=== PATIENT | female | born 1940 | race Caucasian/White ===

== ENCOUNTER → 2017-06-02 | Day surgery (SDC) | payer MEDICARE, OTHER ==
[2017-06-02] VITALS (10 sets, daily range): BP systolic 123–159; BP diastolic 47–77; PULSE 53–89; RESP 12–17; O2SAT 93–100
[~2017-06-02] VITALS: Ht 149.9 cm; Wt 49.4 kg
[~2017-06-02] MED LIST: ACET-2605 PO; ACET500C49 PO; AMLO5TAB2 PO; ASPI-973 PO; CHOL200078 PO; CeFAZolin 2 Gm/50 mL D5W Duplex Bag IV ONE; CeFAZolin Inj 2 GM in IV Premix 1 EACH IV ONE; DICY10CA13 PO; Dexamethasone 4 mg/mL Inj IVPUSH PRN; EPHEDrine Sulfate 50 mg/mL Inj IVPUSH PRN; GABA-502 PO; HYDROcodone-APAP 5-325 mg Tablet PO PRN; KETO10TA PO; Ketamine 10 mg/mL 20 mL Inj ONE; LANS30CA PO; LISI10TA PO; Lactated Ringer's 1,000 ML IV ONE; Lactated Ringer's 1,000 ML IV SCH; Lactated Ringer's 500 ML IV PRN; MAGN200T PO; MELA1TAB28 PO; METO-386 PO; MULTIVITAMIN PO; MetoCLOpramide 5 mg/mL 2 mL Inj IVPUSH PRN; OXYC5CAP4 PO; Ondansetron 2 mg/mL 2 mL Inj IVPUSH PRN; Ondansetron 2 mg/mL 2 mL Inj ONE; Phenylephrine 10,000 mCg/mL Inj IVPUSH PRN; Propofol 10,000 mCg/mL 20 mL Inj ONE; QUET25TA73 PO; SUCR1TAB PO; [UNRECOGNIZED DRUG - CODE] IM; [UNRECOGNIZED DRUG - CODE] PO; [UNRECOGNIZED DRUG - OTHER] PO; morphine PO
--- NOTE | 2017-06-02 08:03 | PCM.HPANE ---
Patient Data Surgeon Admitting Provider: Attending Provider:Lulu Delgadillo MD Primary Care Physician:Stan Chatman MD Other Provider:[facility] Reason for Visit Lower Urinary Tract Symptoms Ht/WT & BMI Height (Feet): 4 Height (Inches): 11.00 Weight (Kilograms): 49.400 Body Mass Index 21.00 Allergies Coded Allergies: quinine (Verified Allergy, Severe, itching and swelling, 06/01/17) Past Anesthesia History Anesthesia History: Denies:: Abnormal Airway, Anesthesia Reactions, Difficult Intubation, Fam Anesthesia Reaction, Fam Malignant Hypertherm, Malignant Hyperthermia Diabetes History Hx Diabetes?: No MRSA MRSA: No Medications Blood Thinner: Aspirin Last Dose Blood Thinner: May 24, 2017 Hypertension Medication: Yes (Metoprolol, Lisinopril) Home Meds Incl Beta Segun: Yes Date Beta Segun Taken: Jun 02, 2017 Time Beta Segun Taken: 05:00 Reported Medications Acetaminophen 500 Mg [id number] Mg PO prn 06/02/17 Cholecalciferol (Vitamin D3) (Vitamin D3)2,000 Unit Tab.chew2,000 Unit PO DAILY 06/01/17 Sucralfate 1 Gm Tablet1 Gm PO HS 30 Days Ref 0 06/01/17 Quetiapine Fumarate 25 Mg Nshvqu65 Mg PO HS Ref 0 06/01/17 Paregoric 2 Mg/5 Ml Liquid2 Mg PO DAILY 06/01/17 oxyCODONE 5 Mg Capsule5 Mg PO Q4H PRN For Pain Ref 0 06/01/17 [multivitamin 50 plus] No Conflict Check Po Daily 06/01/17 [morphine] No Conflict Check15 Mg PO TID PRN For Pain 06/01/17 Metoprolol Succinate ER 25 Mg Tab.er.24h25 Mg PO DAILY Ref 0 06/01/17 Melatonin/Pyridoxine HCl (B6) (Melatonin 3 mg Tablet)1 Each Tablet1 Each PO HS 06/01/17 Magnesium 200 Mg [id number] Mg PO DAILY 06/01/17 Lisinopril 10 Mg Mzzbjc38 Mg PO DAILY 30 Days Ref 0 06/01/17 Lansoprazole 30 Mg Capsule.dr30 Mg PO DAILY #30 CAPSULE Ref 0 06/01/17 Ketorolac Tromethamine 10 Mg Dfrqnf41 Mg PO TID 30 Days 06/01/17 Gabapentin 300 Mg Jppiiri030 Mg PO HS Ref 0 06/01/17 Dicyclomine 10 Mg Bnmwcaf91 Mg PO TID PRN For GI Cramps Ref 0 06/01/17 Aspirin 81 Mg Xmehyl93 Mg PO DAILY Ref 0 06/01/17 Amlodipine 5 Mg Tablet5 Mg PO DAILY Ref 0 06/01/17 Discontinued Reported Medications Acetaminophen/Diphenhydramine (Tylenol Pm Ex-Strength Caplet)500 Mg-25 Mg Tablet1 Each PO DAILY 06/01/17 Dicyclomine HCl 10 Mg/Ml Vial10 Mg IM 06/01/17 History History of ENT Problems?: No HEENT History: Positive for:: Cataracts (removed) Denies:: Abnormal Airway Difficult Intubation Dysphagia Glaucoma Hearing Problem Sinus Problem TMJ Denture Type: None Teeth Condition: Within Normal Limits Hx of Heart Problems?: No Cardiovascular History: Positive for:: Hypertension Irregular Heartbeat Denies:: AICD Abdominal Aortic Aneurism Atrial Fibrillation Cardiac Surgery Chest Pain Congestive Heart Failure Coronary Artery Disease Edema Heart Murmur Pacemaker Peripheral Vascular Rheumatic Fever Thrombophlebitis Valvular Heart Disease Other Cardiac History: Hx of Respiratory Problem?: Yes Respiratory History: Positive for:: Pneumonia (1985) Denies:: Use of C-PAP Machine Use of Inhalers / NEBS Hx Neurologic Problems?: Yes Neurological History: Positive for:: Headaches (Daily neck pain) Denies:: Alzheimer's Disease CVA Dementia Dizziness Parkinson's Disease TIA Hx of GI Problems?: No Gastrointestinal History: Denies:: Cirrhosis Diverticulitis Gall Bladder Disease Gastroesphageal Reflux Gastrointestinal Bleeding Heartburn Hepatitis Hiatal Hernia Liver Disease Rectal Bleeding Other GI Pertinent History: Colitis Hx of Problems?: No Genitourinary History: Denies:: Urinary Tract Infection HX of Peritoneal Dialysis: No Female Hx: Positive for:: Problems with Breasts? (lumpectomy years ago) Denies:: Currently Skin History: Denies:: History Skin Disorders? Pressure Ulcers Hx Musculoskeletal Problems?: Yes Musculoskeletal History: Positive for:: Back Injury (Lower back at [facility]) Rheumatoid Arthritis Denies:: Degenerative Joint Joint Replacement Musculoskeletal Trauma Osteoarthritis Hx of Psycho/Social Problems?: No Hx Surgeries?: Yes (bladder) Other History: Positive for:: Hospitalization (2014) Denies:: Cancer Endocrine Disease Thyroid Disease History Blood Transfusions: Positive for:: Accept Blood Products? Denies:: Blood Transfusions Hx Diabetes: No Hx Alcohol Use: YesAlcoholic Drinks Per Day: Wine with dinnerHx Substance Use : No Stop/Bang Treated for Sleep Apnea?: No Do You Have a CPAP Machine?: No S-Snoring: Do You Snore Loudly: No T-Tired: feel tired, fatigued: No O-Obsered: Observed not breath: No P-Blood Pressure: treated: Yes B- Body Mass Index > 35 kg/m2: No A- Age over 50: Yes N- Neck Large Circumference: No G- Gender Male: No ORIANA Total Score: 2 ORIANA Risk Assessment: Low Risk, <3 Yes Risk Assessment Category Category 1A: Patient has history of documented sleep apnea, and HAS NOT received any narcotic, sedative or anesthesia administration during this stay. Category 1B: Patient has history of documented sleep apnea, and HAS received any narcotic , sedative or anesthesia administration during this stay Category 2: Patient has SUSPECTED Obstructive Sleep Apnea, and HAS received any narcotic , sedative or anesthesia administration during this stay. Category 3: Patient has SUSPECTED Obstructive Sleep Apnea and HAS NOT received narcotic, sedative or anesthesia administration during this stay. Category 4: Outpatient in Procedural Areas with known sleep apnea or who screen positive for High Risk via the STOP/BANG questionnaire. Exam Exam Vital Signs Vital Signs Date Time Temp Pulse Resp B/P Pulse Ox O2 Delivery O2 Flow Rate FiO2 06/02/17 07:13 36.4 89 15 144/77 96 Room Air General Appearance: Alert, Oriented X3, Cooperative, No Acute Distress HEENT/AIRWAY: MP 2 Lungs: Clear to Auscultation, Normal Air Movement Heart: Exam Unremarkable, Regular Rate/Rhythm, No Murmurs/Rubs/Gallops Meds/Labs/Diagnostics Admission Meds Current Medications Lactated Ringer's (Lr) 1,000 ml @ ud STK-MED ONCE IV Last administered on 06/02t 07:48; Start 06/02/17 at 07:48; Stop 06/02/17 at 07:49; Status DC Plan Impression Patient chart reviewed, patient interviewed and anesthestic plan with risks, benefits, and alternatives discussed, and informed consent obtained. ASA Physical Status: ASA2 Mod Systemic Disease Anesthetic Plan: GA Bene/Risks/Altern/Consents: Yes HP Complete Prior to Induction: Yes Luis Bansal MD Jun 02, 2017 08:03
[2017-06-02] MEDS: fentaNYL-PF 50 mCg/mL 2 mL Inj IVPUSH PRN ×2 (10:05→10:17)
[2017-06-02] MEDS: HYDROmorphone 1 mg/mL Inj IVPUSH PRN ×2 (10:08→10:15)
--- NOTE | 2017-06-02 10:10 | OP ---
[address] [address] OPERATIVE REPORT PATIENT: GIO GIRARD : 1940 MR#: [id number] ADMIT: 06/02/2017 JOB ID: [id number] DATE OF SURGERY: 06/02/2017 PREOPERATIVE DIAGNOSIS(ES): Bladder lesion. POSTOPERATIVE DIAGNOSIS(ES): Bladder lesion. PROCEDURE PERFORMED: Cystoscopy and fulguration of bladder lesion. SURGEON: Lulu Delgadillo M.D. TOURS CAPTAIN: None. FINDINGS: Posterior bladder wall shallow appearing ulceration. ANESTHESIA: General. ESTIMATED BLOOD LOSS: None. DRAINS: None. SPECIMENS: None. COMPLICATIONS: None. CONDITION: Stable. INDICATIONS FOR PROCEDURE: The patient is a 76-year-old woman known to me for bladder lesion. She has had this lesion biopsied in the past and it showed that it was an ulcerative lesion without malignancy. She had begun to experience irritative voiding symptoms. It was noted that her symptoms had subsided after the fulguration of the lesion in the past. In-clinic cystoscopy revealed she had this recurrent shallow ulceration. She wished to have the lesion fulgurated after considering her options. DESCRIPTION OF PROCEDURE: After informed consent was obtained, the patient was taken to the operating room. A time-out was performed identifying correct patient, surgical site and procedure. General anesthesia was induced. She was given intravenous antibiotics just prior to start of the procedure. She was placed in the lithotomy position and all pressure points were identified and appropriately padded. Her genitals were then prepped and draped in the usual sterile fashion. A 22-Uzbek rigid cystoscope was applied to the patient's urethra and advanced into the bladder. The bladder was drained. At the posterior bladder wall toward the superior aspect, there was seen a recurrent lesion that was very shallow in terms of its ulcerative quality. It was fulgurated with a Bugbee electrode. It was fulgurated in its entirety as well as a centimeter surrounding of normal mucosa. The bladder was drained. It was reinspected. There was no bleeding. The patient was then reversed from general anesthesia and taken to PACU in good and stable condition. [facility]
--- NOTE | 2017-06-02 10:29 | PCM.ANEP1 ---
Post Anesthesia PACU Phase 1 Assessment Vital Signs Vital Signs Date Time Temp Pulse Resp B/P Pulse Ox O2 Delivery O2 Flow Rate FiO2 06/02/17 10:00 37.3 53 14 151/47 98 Room Air 06/02/17 09:55 60 15 151/77 99 Room Air 06/02/17 09:50 56 17 150/58 100 Room Air 06/02/17 09:45 59 17 144/55 100 Room Air 06/02/17 09:41 37.1 54 14 123/57 94 Room Air 06/02/17 07:13 36.4 89 15 144/77 96 Room Air Anesthetic Administered: GA Level of Alertness: Awake, talking BANUELOS's with Equal Strength: Yes Pain: No Nausea or Vomiting: No CV Function & Hydration Stable: Yes Airway Device: LMA Lungs: Clear to Auscultation, Normal Air Movement Dermatome Level: Full Sensation PACU Phase 2 Assessment Complications: No Follow up Care: No Patient Instructions Provided: N/A Luis Bansal MD Jun 02, 2017 10:28
== END | disposition home or self-care (01) ==
LOC: SAS 06:42
PROVIDERS: ATTEND Urology
DX: N32.9 Bladder disorder, unspecified (principal); R39.9 Unspecified symptoms and signs involving the genitourinary system; I10 Essential (primary) hypertension; M06.9 Rheumatoid arthritis, unspecified; Z87.440 Personal history of urinary (tract) infections; Z79.82 Long term (current) use of aspirin
CPT/HCPCS: 52224; J0690; J1170; J2405; J2704; J3010; J7120